=== PATIENT | female | born 1965 | race Two or more races ===

== ENCOUNTER 2024-03-31 17:46 | Observation (INO) | payer MEDICAID, SELFPAY ==
[2024-03-31 17:47] VITALS: BMI 29.2
[2024-03-31 18:21] VITALS: BP 147/56; PULSE 65; RESP 19; TEMP 37.1; O2SAT 97
[2024-03-31 18:22] VITALS: BMI 28.0
--- NOTE | 2024-03-31 18:23 | EKG_ITS ---
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
--- NOTE | 2024-03-31 18:49 | XR_ITS ---
Examination: PA chest single view Technique: Upright PA chest single view Exam date and time: March 31, 2024 1921 hrs. Indications: Chest pain today. Findings: Normal heart size Lungs are clear. The osseous structures are intact Impression: No active disease
--- NOTE | 2024-03-31 18:49 | PD.EDRME ---
Rapid Medical Screening Exam [facility] Arrival date/time: 03/31/24 17:46 59F with history of HTN, DM, and anxiety presents to ED with 2 days of CP and SOB (CP>SOB). Patient denies URI symptoms and emotional/triggering event. Chief Complaint: Chest Pain Vital signs: Vital Signs Temperature 98.8 F 03/31/24 18:21 Pulse Rate 65 03/31/24 18:21 Respiratory Rate 19 03/31/24 18:21 Blood Pressure 147/56 H 03/31/24 18:21 Pulse Oximetry (%) 97 03/31/24 18:21 Oxygen Delivery Method Room Air 03/31/24 18:21
[2024-03-31 19:47] LABS: Basophils # (Auto) 0.1 Thou/mm3 (0.0-0.2); Basophils % (Auto) 1 % (0-2.5); Eosinophils # (Auto) 0.1 Thou/mm3 (0.0-0.5); Eosinophils % (Auto) 1 % (0-10); Hematocrit 39.1 % (36.0-46.0); Hemoglobin 12.8 g/dL (12.0-16.0); Immature Granulocytes % (Auto) 0 % (0-0); Immature Granulocytes Auto 0.02 Thou/mm3 (0.00-0.00); Lymphocytes # (Auto) 2.7 Thou/mm3 (1.0-4.8); Lymphocytes % (Auto) 35 % (10-50); Mean Corpuscular HGB Conc 32.7 g/dl (31.0-37.0); Mean Corpuscular Hemoglobin 26.7 pg (25.0-35.0); Mean Corpuscular Volume 82 fL (80-100); Monocytes # (Auto) 0.5 Thou/mm3 (0.0-0.8); Monocytes % (Auto) 7 % (0-12); Neutrophils # (Auto) 4.3 Thou/mm3 (1.8-7.7); Neutrophils % (Auto) 56 % (37-80); Nucleated Red Blood Cell % 0 /100 WBC (0); Platelet Count 288 Thou/mm3 (140-440); RDW Standard Deviation 40.5 fL (36.4-46.3); White Blood Count 7.8 Thou/mm3 (3.6-11.0)
[2024-03-31 19:52] LABS: B-Type Natriuretic Peptide < 20 pg/mL (0-100)
[2024-03-31 19:53] LABS: Anion Gap 8 (7-16); Blood Urea Nitrogen 22 mg/dL (9-23); Carbon Dioxide 28.3 mMol/L (20.0-31.0); Chloride 103 mMol/L (98-107); Creatinine (Component) 1.2 mg/dL (0.6-1.3); Potassium 4.1 mMol/L (3.4-5.1); Sodium 139 mMol/L (136-145)
[2024-03-31 19:54] LABS: Alanine Aminotransferase 35 U/L (10-49); Albumin, Serum 4.8 gm/dL (3.4-4.8); Albumin/Globulin Ratio 1.5 (1.2-2.2); Alkaline Phosphatase 101 U/L (46-116); Aspartate Amino Transferase 23 U/L (0-34); BUN/Creatinine Ratio 18 Ratio (12-20); Bilirubin,Total 0.3 mg/dL (0.3-1.2); Calcium 10.1 mg/dL (8.3-10.6); Calcium (Corrected) 10.1 mg/dL (8.5-10.1); Estimated Creatinine Clearance 45.5 mL/min (>60); Globulin 3.1 gm/dL (2.3-3.5); Glucose 138 mg/dL (74-106); Osmolality,Calculated 282 (275-295); Total Protein 7.9 gm/dL (5.7-8.2); Troponin I 0.032 ng/mL (0.0-0.045); eGFR 52 See Note
[2024-03-31 20:24] VITALS: BP 162/94; PULSE 65; RESP 18; O2SAT 100
--- NOTE | 2024-03-31 20:28 | EDNOTE_ITS ---
ED Chest Pain RME/HPI General Chief Complaint: Chest Pain Stated Complaint: CHEST PAIN SINCE LAST NIGHT Arrival date/time: 03/31/24 17:46 RME / HPI RME / HPI narrative: 03/31/24 17:46 59F with history of HTN, DM, and anxiety presents to ED with 2 days of CP and SOB (CP>SOB). Patient denies URI symptoms and emotional/triggering event. ------ Dr. Virgen?s Main ED Evaluation: 59yo female with pmhx HTN, HLD, DM accompanied by her daughter presents to the ED for a chief complaint of left-sided chest pain x yesterday. Patient states she started having chest pain at 2039 last night. She currently rates her pain a 7 out of 10 in severity. She reports associated shortness of breath and her hands are sweating. She denies any headache, bloody nose, N/V or any other associated symptoms. She states she took her HTN medication this morning. 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 She denies any tobacco or illicit drug use. No known allergies. Related Data Home Medications ?Medication ?Instructions ?Recorded ?Confirmed lisinopril 40 mg tablet 20 ml PO QDAY #0 tabs 08/14/16 03/31/24 insulin glargine 100 unit/mL (3 36 unit subcut QPM 12/05/20 03/31/24 mL) subcutaneous pen (Basaglar KwikPen U-100 Insulin) metformin 1,000 mg tablet,extended 500 mg PO BID 12/05/20 03/31/24 release 24hr (osmotic) dapagliflozin propanediol 5 mg 5 mg PO QDAY 03/31/24 03/31/24 tablet (Farxiga) Allergies Allergy/AdvReac Type Severity Reaction Status Date / Time acetaminophen [From Tylenol] Allergy Verified 03/31/24 20:54 Review of Systems Review of Systems Systems Reviewed: All systems reviewed, normal except as documented Narrative Review of Systems: Gen: No fever, no chills, no weight loss, + sweating EYES: No discharge, no visual changes, no pain HEENT: No ear pain, no congestion, no sore throat PULM: + shortness of breath, no cough, no congestion CV: + chest pain, no dyspnea on exertion, no palpitations GI: No nausea, no vomiting, no diarrhea, no pain, no constipation : No frequency, no urgency, no dysuria Musc/skel: No joint pain, no back pain Skin: No rash. Warm and dry. Psyc: No hallucinations, no depression Heme/Lymph: No easy bleeding or bruising tendencies Neuro: No weakness, no headache Past Medical History Past Medical History NEUROLOGIC: Negative Neurological Disorders or Seizures CARDIAC: Positive Cardiac Disorders, Hypercholesterolemia and Hypertension; Negative Congestive Heart Failure RESPIRATORY: Negative Chronic Obstructive Pulmonary Disease (COPD) GASTROINTESTINAL: Positive Gastrointestinal Disorders and Hemorrhoids; Negative Hepatitis GENITOURINARY: Negative Genitourinary Disorders or Renal Disease REPRODUCTIVE: Positive Previous Pregnancies MUSCULOSKELETAL: Positive Musculoskeletal Disorders and Arthritis ENDOCRINE: Positive Endocrine Disorders and Diabetes Mellitus Type 2; Negative Diabetes Mellitus Type 1 HEMATOLOGIC: Negative Blood Disorders OTHER HISTORY: Positive Shingles, Falls, Blood Transfusions and Chicken Pox; Negative Hospitalization, Blood Transfusion Reaction, Anesthesia Reactions, Chemotherapy, Radiation Therapy, MRSA or Cancer Surgical History SURGICAL: Positive Section; Negative Cardiac Surgery, Endocrine Surgery or Abdominal Surgery Social History SMOKING STATUS: Never smoker ED Exam Narrative Physical exam: GENERAL APPEARANCE: alert and oriented x 4, well-developed, well-nourished, no acute distress VITALS: All vitals were reviewed and the pulse ox is 100% on room air, which is normal according to my interpretation. HEENT: Normocephalic, atraumatic; pupils equal, round, reactive to light; EOMI; mucous membranes pink, moist; oropharynx clear NECK: Supple LUNGS: CTABL; no wheezes, no rales, no rhonchi HEART: Regular rate, regular rhythm; normal S1, S2; no murmurs ABDOMEN: non distended; normal BS; soft, no tenderness, no guarding, no rebound; no masses, no organomegaly, no hernia BACK: no CVA tenderness EXTREMITIES: atraumatic; no edema NEUROLOGIC: awake; alert and oriented x4; cranial nerves II-XII grossly intact; no focal sensory or motor deficits PSYCHIATRIC: appropriate mood and affect SKIN: warm, dry, normal color; no rashes Course Course Course Narrative: CXR is ordered for determining the etiology of chest pain. Quality Measures none Orders Category Date Time Status COVID-19 Screening Questionnaire NOW Care 03/31/24 21:01 Active Home Lending Officer Q4H START 00 Care 03/31/24 20:30 Active Continuous Pulse Oximetry ONCE Care 03/31/24 20:30 Active Decision to Admit X1 Care 03/31/24 21:00 Completed EKG (ED ONLY) *Do not use* NOW Care 03/31/24 18:23 Completed Insert IV STAT Care 03/31/24 20:30 Active EKG (ED Only) Stat Exams 03/31/24 18:23 Ordered XR chest 1V portable Stat Exams 03/31/24 18:49 Completed BNP [B-Type Natriuretic Peptide] Stat Lab 03/31/24 19:09 Completed CBC Stat Lab 03/31/24 19:09 Completed Comprehensive Metabolic Panel Stat Lab 03/31/24 19:09 Completed Lipase Stat Lab 03/31/24 19:09 Completed Magnesium Stat Lab 03/31/24 19:09 Completed Troponin I Stat Lab 03/31/24 19:09 Completed Aspirin Med 03/31/24 20:29 Discontinued 325 mg PO X1 ONE Nitroglycerin Oint 2% [Nitro-paste Oint 2%] Med 03/31/24 20:29 Discontinued 1 inch TOP X1 ONE Vital Signs Vital signs: Vital Signs Temperature 98.8 F 03/31/24 18:21 Pulse Rate 65 03/31/24 18:21 Respiratory Rate 19 03/31/24 18:21 Blood Pressure 147/56 H 03/31/24 18:21 Pulse Oximetry (%) 97 03/31/24 18:21 Oxygen Delivery Method Room Air 03/31/24 18:21 Chest Pain MDM Narrative MDM Narrative:: Scribe Attestation: 03/31/24 Rufina Najera am scribing for and in the presence of Dr. Virgen. HEART score is 4, which makes the patient at moderate risk for a cardiac event. Patient data External records reviewed:: [facility] previous records (Per chart review, patient has no previous ED visits to this facility.) Clinical information provided by:: patient Social determinants that could affect healthcare access:: none Patient has the following chronic illnesses:: HTN, HLD, DM How is presenting disease/condition affected by chronic disease/condition?: caused by Evaluation data The following diagnostics were reviewed and interpreted by me:: lab results, radiology exam(s) and EKG tracing(s) Lab and/or radiology exams considered but not ordered:: none Interpretation Summary: CBC is normal, CMP is normal, troponin is normal, according to my interpretation. EKG done at 1837, NSR, rate of 63, normal axis, no ectopy, Q wave in lead III and aVF, no acute ischemia, according to my interpretation. ---- [facility] Report Signed Patient: FERCHO LIMON Record#: [id number] Birthdate: 1965 Age/Sex: 59 / F Location: [facility] Attending Dr: Ordering Physician: Jorje Saunders PA-C Date of Service: 03/31/24 Procedure(s): XR chest 1V portable Accession Number(s): [id number] cc: Dano Sharma MD; Jorje Saunders PA-C~ Examination: PA chest single view Technique: Upright PA chest single view Exam date and time: March 31, 2024 1921 hrs. Indications: Chest pain today. Findings: Normal heart size Lungs are clear. The osseous structures are intact Impression: No active disease Dictated By: Dano Sharma MD Signed By: <Electronically signed by Dano Sharma MD in OV> 03/31/241925 Medications / Prescriptions Medications or Prescriptions considered but not ordered:: none Medication administrations:: Medication Administration History Dextrose (Dextrose 50%-Water Inj 50 Ml Syringe) 25 ml IV Q15MIN PRN PRN Reason: BG 50-70 responsive npo pt Stop: 05/01/24 01:47 Dextrose (Dextrose 50%-Water Inj 50 Ml Syringe) 50 ml IV Q15MIN PRN PRN Reason: BG <50 OR BG <70 & pt unresponsive Stop: 05/01/24 01:47 Enoxaparin Sodium (Enoxaparin Sod Inj 80 Mg/0.8 Ml Syringe) 70 mg SC BID YARELY Stop: 04/15/24 08:59 Glucagon (Glucagon Inj 1 Mg Vial) 1 mg IM Q15MIN PRN PRN Reason: BG <70, and no IV access Influenza Virus Vaccine Quadrival (Influenza Virus Quadrivalent 0.5 Ml Syringe) 0.5 ml IMi .ONCE ONE Stop: 04/01/24 08:01 Insulin Glargine (Insulin Glargine (Lantus) 5 Unit/0.05 Ml (Per 5 Units)) 10 unit SC HS YARELY Stop: 05/01/24 20:59 Insulin Human Lispro (Insulin Lispro (Admelog) 1 Unit/0.01 Ml Unit) 0 unit SC AC [facility]; Protocol Stop: 05/01/24 07:29 Lisinopril (Lisinopril 20 Mg Tablet) 20 mg PO QDAY [facility] Stop: 05/01/24 08:59 Ondansetron HCl (Ondansetron Inj 2 Mg/Ml Inj 2 Ml) 4 mg IV Q6H PRN; Protocol PRN Reason: NAUSEA OR VOMITING Stop: 04/30/24 22:07 Discontinued Medications Aspirin (Aspirin 325 Mg Tablet) 325 mg PO X1 ONE Stop: 03/31/24 20:30 Last Admin: 03/31/24 20:40 Dose: 325 mg Documented By: RUDY Heparin Sodium (Porcine) (Heparin Sod Inj 5000 Unit/Ml Vial) 5,000 unit SC Q12HR [facility] Stop: 04/15/24 08:59 Nitroglycerin (Nitroglycerin Oint 2% 1 Inch Packet) 1 inch TOP X1 ONE Stop: 03/31/24 20:30 Last Admin: 03/31/24 20:40 Dose: 1 inch Documented By: RUDY see above Consultations Consultation(s) initiated? (list below): Yes Consultation #1 (Physician, Specialty, Details): Discussed case with [the resident physician, attending Dr. Barger] from Hospitalist service regarding consultation. Discussed patients ED course, exam findings, labs, and radiology results. The Hospitalist states we don't perform stress tests here. Time: 20:49 Consultation #2 (Physician, Specialty, Details): Discussed case with [Dr. Liang] from [cardiology] regarding [consultation]. Discussed patients ED course, exam findings, labs, and radiology results. States to admit the patient. Agrees to consult. Time: 20:53 Consultation #3 (Physician, Specialty, Details): Discussed case with [the resident physician, attending Dr. Barger] from Hospitalist service regarding admission. Discussed patients ED course, exam findings, labs, and radiology results. The Hospitalist [agrees] to accept the patient for admission. Time: 20:58 Diagnosis Chest Pain Differential Diagnosis: st elevation myocardial infarction, costochondritis, chest pain and other (NSTEMI, ACS) Most likely diagnosis given after review of the tests above:: see below Admission Indicated Admission indicated?: indicated Admission Request Was there a request for admission?: Yes Admission Attestation Admission request attestation: Discussed case with [] from Hospitalist service regarding admission. Discussed patients ED course, exam findings, labs, and radiology results. The Hospitalist [agrees,declines] to accept the patient for admission. Disposition Plan Disposition Plan: Admit Critical Care Time Critical Care Time Critical Care Time: Yes Total Critical Care Time (min.): 35 Attestation: The high probability of sudden, clinically significant deterioration in the patient?s condition required the highest level of my preparedness to intervene urgently. The services I provided to this patient were to treat and/or prevent clinically significant deterioration. Services included the following: chart data review, reviewing nursing notes and/or old charts, documentation time, it architecture consultant collaboration regarding findings and treatment options, medication orders and management, direct patient care, vital sign assessments and ordering, interpreting and reviewing diagnostic studies and lab tests. Aggregate critical care time includes only time during which I was engaged in work directly related to the patient?s care, as described above, whether at bedside or elsewhere in the Emergency Department. It did not include time spent performing other reported procedures or the services of residents, students, nurses or physician assistants. Discharge Plan Plan Patient Disposition: Admit Acute Care w/in Hospital Problem List Clinical Impression: Non-ST elevation NM (NSTEMI)
[2024-03-31 20:40] VITALS: BP 142/76; PULSE 62
[2024-03-31] MEDS: NITROGLYCERIN OINT 2% 1 INCH PACKET TOP (20:40)
[2024-03-31] MEDS: Aspirin 325 MG TABLET PO (20:40)
[2024-03-31 20:46] VITALS: PULSE 60
[2024-03-31 21:59] LABS: Lipase 51 U/L (12-53); Magnesium 1.9 mg/dL (1.6-2.6)
[2024-03-31 22:43] VITALS: BP 146/81; PULSE 64; RESP 17; TEMP 36.9; O2SAT 97
[2024-03-31 23:22] VITALS: BMI 27.8
--- NOTE | 2024-03-31 23:55 | PC.NURSE ---
Pt came in from ED, pt is alert and oriented, no C/O of pain at this time. Pt is ambulatory stedy on her feet.
[2024-04-01] VITALS (10 sets, daily range): BP systolic 111–156; BP diastolic 58–83; PULSE 57–71; RESP 16–97; TEMP 36.4–36.8; O2SAT 95–97
--- NOTE | 2024-04-01 00:12 | PD.RESHP ---
Documentation for date of: 04/01/24 [facility] History of Present Illness History of present illness: The patient is a 59-year-old female with a past medical history of hypertension and diabetes presenting to the ED on 03/31/2024 with chest pain. She was in her usual state of health until about 8:40 PM last night when she started to have left-sided chest pain, rated about 7/10 in severity, nonradiating. She mentions that it started Initially on exertion as she worked, lasted about 30 minutes and she was relieved but it basically had been intermittent since onset. She denies palpitations or shortness of breath in association with the symptoms. Pain does not change in inspiration and patient reports that as she massaged her chest it seemed to get better. She has not had a similar episode in the past. She neither smokes nor drinks alcohol use any illicit drugs. ED course: In the ED, patient was afebrile, initial blood pressure was elevated at 147 and she was nontachycardic, saturating 97% on room air. CBC was unremarkable as well as CMP, glucose slightly elevated at 138. EKG was done and was unremarkable and chest x-ray had no active disease. Troponins are negative. The patient received aspirin and nitroglycerin in the ED and states that she felt like it made her feel better. Copy Coordinator Dr. Liang was consulted and recommended to admit the patient for observation and if chest pain worsens possible left heart cath. PMHx-hypertension, diabetes PSHx-Nil Home meds-Farxiga, lisinopril, insulin 35 units twice daily, metformin Review of Systems Review of Systems Narrative Review of Systems: GENERAL: Denies fevers/chills or diaphoresis. HEENT: Denies headache or visual/hearing changes. Denies nasal discharge. NEURO: Denies unusual weakness or difficulty speaking. CARDIO: Admits chest pain, denies palpitations PULM: Denies SOB, coughing, or wheezing. GI: Denies abdominal pain, N/V/C/D/reflux/gas, bright red blood per rectum or melena. Reports having BMs. URO: Denies burning/itching/pain/urinary changes. MSK/EXT/SKIN: Denies joint/skeletal/muscle pain, issues/changes in upper or lower extremities, itchiness, or superficial pain. PSYCH: Cooperative, pleasant mood & affect. 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 Eyes open, symmetrical, & clear CARDIO: No chest pain on palpation. Heart RRR, no obvious murmurs PULM: No noted coughing/dyspnea. Lungs CTA B/L GI: Abdomen soft, nondistended, no pain on palpation. BSx4 URO/METAL SORTER:: No further abnormalities noted. SKIN/MSK/EXT: No wounds/rashes/edema/amputations, no pain on palpation. Pedal pulses present B/L Results: Labs 04/01/24 04:59 04/01/24 04:59 Labs: Short CBC 03/31/24 Range/Units 19:09 WBC 7.8 (3.6-11.0) Thou/mm3 Hgb 12.8 (12.0-16.0) g/dL Hct 39.1 (36.0-46.0) % Plt Count 288 (140-440) Thou/mm3 BMP 03/31/24 19:09 Sodium 139 Potassium 4.1 Chloride 103 Carbon Dioxide 28.3 BUN 22 Creatinine 1.2 Glucose 138 H Calcium 10.1 Cardiac Enzymes 03/31/24 Range/Units 19:09 Troponin I 0.032 (0.0-0.045) ng/mL Liver Function 03/31/24 Range/Units 19:09 Total Bilirubin 0.3 (0.3-1.2) mg/dL AST 23 (0-34) U/L ALT 35 (10-49) U/L Alkaline Phosphatase 101 (46-116) U/L Albumin 4.8 (3.4-4.8) gm/dL Quality Measures Quality Measures none Medications Home Medications and Allergies Home Medications ?Medication ?Instructions ?Recorded ?Confirmed ?Type lisinopril 40 mg tablet 20 ml PO QDAY #0 tabs 08/14/16 03/31/24 History insulin glargine 100 unit/mL (3 36 unit subcut QPM 12/05/20 03/31/24 History mL) subcutaneous pen (Basaglar KwikPen U-100 Insulin) metformin 1,000 mg tablet,extended 500 mg PO BID 12/05/20 03/31/24 History release 24hr (osmotic) dapagliflozin propanediol 5 mg 5 mg PO QDAY 03/31/24 03/31/24 History tablet (Farxiga) Allergies Allergy/AdvReac Type Severity Reaction Status Date / Time acetaminophen [From Tylenol] Allergy Verified 03/31/24 20:54 Visit Medications Heparin Sodium (Porcine) (Heparin Sod Inj 5000 Unit/Ml Vial) 5,000 unit SC Q12HR YARELY Stop: 04/15/24 08:59 Influenza Virus Vaccine Quadrival (Influenza Virus Quadrivalent 0.5 Ml Syringe) 0.5 ml IMi .ONCE ONE Stop: 04/01/24 08:01 Ondansetron HCl (Ondansetron Inj 2 Mg/Ml Inj 2 Ml) 4 mg IV Q6H PRN; Protocol PRN Reason: NAUSEA OR VOMITING Stop: 04/30/24 22:07 Discontinued Medications Aspirin (Aspirin 325 Mg Tablet) 325 mg PO X1 ONE Stop: 03/31/24 20:30 Last Admin: 03/31/24 20:40 Dose: 325 mg Nitroglycerin (Nitroglycerin Oint 2% 1 Inch Packet) 1 inch TOP X1 ONE Stop: 03/31/24 20:30 Last Admin: 03/31/24 20:40 Dose: 1 inch Assessment & Plan Assessment Summary: The patient is a 59-year-old female with a past medical history of hypertension and diabetes presenting to the ED on 03/31/2024 with chest pain. Copy Coordinator Dr. Liang was consulted and recommended to admit the patient observation and if chest pain worsens possible left heart cath. #Atypical chest pain #Rule out unstable angina The patient presented with a 24hr history of chest pain, rated about 7 out of 10 in severity, nonradiating, initially felt on exertion, intermittent. She denied palpitation or shortness of breath in association. In the ED, patient was afebrile, initial blood pressure was elevated at 157, no tachycardia. Troponins were negative and EKG was unremarkable. Copy Coordinator Dr. Liang was consulted and recommended starting the patient admitted the patient and chest pain worsens or progresses for the next 24 hours, likely left heart cath. Plan: -Admit to medtele obs -Pain management -Monitor troponins and EKG -Aspirin 81mg daily #History of hypertension The patient has a history of hypertension and is on lisinopril 20mg daily. BP on admission- 147/56. Plan: -Resume home meds #History of diabetes The patient has a history of diabetes and is on farxiga 5mg, metformin 500mg BID and insulin lantus 36units at night. No A1c on file Plan: -A1c -ISS -Blood glucose check AC Health maintenance: Dispo:MedTele obs Diet: Cardiac DVT: SC Lovenox Duran: None Lines: Peripheral PT: Not ordered Code: Full Case was discussed with attending physician, Dr Charbel Meng MD PGY-1 Attending Provider Attestation/Addendum I, Nishant Barger MD attest that I was physically present for the berumen portions of the service and evaluated the patient with the resident and I reviewed and discussed the case with the resident and agree with the resident's findings and plans of care as documented above 59-year-old female with past medical history of hypertension, hyperlipidemia, DM presents to ED with chief complaint of nonradiating left-sided chest pain that began last night. Chest pain has been waxing and waning and is exacerbated by movement and improved with rest. Initial workup in the ED showed negative troponin with initial EKG showing possible Q waves in inferior leads. cardiology was consulted by ED who recommended admission for serial monitoring and possible further cardiac workup given risk factors and HEART score of 4. Will initiate patient on therapeutic lovenox and continue serial monitoring for now, formal cardiology consult pending in the am. Nishant Barger MD
--- NOTE | 2024-04-01 00:52 | EKG_ITS ---
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
[2024-04-01 02:20] LABS: Glucose Estimated Average 197 mg/dL (80-131); Hemoglobin A1C 8.5 % Hgb (4.8-6.0); Troponin I 0.029 ng/mL (0.0-0.045)
--- NOTE | 2024-04-01 04:46 | PC.NURSE ---
Pt is asleep, no C/O of chest pain at this time.
[2024-04-01 05:46] LABS: Basophils # (Auto) 0.1 Thou/mm3 (0.0-0.2); Basophils % (Auto) 1 % (0-2.5); Eosinophils # (Auto) 0.1 Thou/mm3 (0.0-0.5); Eosinophils % (Auto) 2 % (0-10); Hematocrit 35.2 % (36.0-46.0); Hemoglobin 11.4 g/dL (12.0-16.0); Immature Granulocytes % (Auto) 0 % (0-0); Immature Granulocytes Auto 0.01 Thou/mm3 (0.00-0.00); Lymphocytes # (Auto) 3.1 Thou/mm3 (1.0-4.8); Lymphocytes % (Auto) 44 % (10-50); Mean Corpuscular HGB Conc 32.4 g/dl (31.0-37.0); Mean Corpuscular Hemoglobin 26.3 pg (25.0-35.0); Mean Corpuscular Volume 81 fL (80-100); Monocytes # (Auto) 0.5 Thou/mm3 (0.0-0.8); Monocytes % (Auto) 7 % (0-12); Neutrophils # (Auto) 3.2 Thou/mm3 (1.8-7.7); Neutrophils % (Auto) 46 % (37-80); Nucleated Red Blood Cell % 0 /100 WBC (0); Platelet Count 167 Thou/mm3 (140-440); RDW Standard Deviation 40.8 fL (36.4-46.3); Red Blood Count 4.34 Miln/mm3 (4.00-5.20)
[2024-04-01 06:15] LABS: Alanine Aminotransferase 25 U/L (10-49); Albumin, Serum 4.1 gm/dL (3.4-4.8); Albumin/Globulin Ratio 1.5 (1.2-2.2); Alkaline Phosphatase 85 U/L (46-116); Anion Gap 6 (7-16); Aspartate Amino Transferase 21 U/L (0-34); BUN/Creatinine Ratio 18 Ratio (12-20); Bilirubin,Total 0.3 mg/dL (0.3-1.2); Blood Urea Nitrogen 18 mg/dL (9-23); Calcium 9.5 mg/dL (8.3-10.6); Calcium (Corrected) 9.5 mg/dL (8.5-10.1); Carbon Dioxide 27.2 mMol/L (20.0-31.0); Cardiac Risk Estimate 5.7 RATIO (3.7-5.6); Chloride 106 mMol/L (98-107); Cholesterol 215 mg/dL (132-200); Estimated Creatinine Clearance 54.5 mL/min (>60); Globulin 2.7 gm/dL (2.3-3.5); Glucose 92 mg/dL (74-106); HDL Cholesterol 38 mg/dL (40-60); LDL Cholesterol,Calculated 151 mg/dL (0-130); Magnesium 1.8 mg/dL (1.6-2.6); Osmolality,Calculated 279 (275-295); Phosphorous 4.5 mg/dL (2.4-5.1); Potassium 3.7 mMol/L (3.4-5.1); Sodium 139 mMol/L (136-145); Thyroid Stimulating Hormone 5.74 uIU/mL (0.55-4.78); Total Protein 6.8 gm/dL (5.7-8.2); Triglycerides 129 mg/dL (30-150); eGFR > 60 See Note
[2024-04-01 07:49] LABS: Partial Thromboplastin Time 25.3 Seconds (22.0-36.0); Prothrombin Time 10.7 Seconds (9.0-12.2)
[2024-04-01 08:47] LABS: Free T4 (Free Thyroxine) 1.35 ng/dL (0.89-1.76)
[2024-04-01] MEDS: Lisinopril 20 MG TABLET PO (09:22)
[2024-04-01] MEDS: HEPARIN SOD INJ 5000 UNIT/ML VIAL 4000 UNIT IV (09:24)
--- NOTE | 2024-04-01 09:24 | PC.SS ---
Patient Suzi Hidalgo is a 59 year old female admitted for Chest Pain. SS met with patient at bedside to discuss discharge plan. Patient reports she lives at home with her daughter and . Patient reports that prior to admission she was able to ambulate and did not utilize any source of DME to assist with ambulation. Patient is able to complete all ADL's independently. Patient's PCP is Joana Jules. Patient's Medical decision maker is her daughter, Darya Lara [phone]. At time of discharge patient will return home. Family will provide transportation. Next of Kin: Darya Marco [phone] Discharge plan: Home
[2024-04-01] MEDS: Heparin/D5w 25K 250 ML Ivpb 25,000 UNIT/250 ML BAG 8.284 UNIT IV (09:32)
--- NOTE | 2024-04-01 09:35 | PD.RESPRO ---
Documentation for date of: 04/01/24 Exam Vital Signs Temp Pulse Resp BP Pulse Ox O2 Del Method 98.1 F 68 18 122/61 96 Room Air 04/01/24 07:46 04/01/24 09:09 04/01/24 09:09 04/01/24 07:46 04/01/24 07:46 04/01/24 07:46 Objective Labs 04/01/24 04:59 04/01/24 04:59 Labs: Laboratory Results - last 24 hr 03/31/24 04/01/24 04/01/24 19:09 01:36 04:59 WBC 7.8 7.0 RBC 4.80 4.34 Hgb 12.8 11.4 L Hct 39.1 35.2 L MCV 82 81 MCH 26.7 26.3 MCHC 32.7 32.4 RDW Std Deviation 40.5 40.8 Plt Count 288 167 D Neut % (Auto) 56 46 Lymph % (Auto) 35 44 [place] % (Auto) 7 7 Eos % (Auto) 1 2 Baso % (Auto) 1 1 Neut # (Auto) 4.3 3.2 Lymph # (Auto) 2.7 3.1 [place] # (Auto) 0.5 0.5 Eos # (Auto) 0.1 0.1 Baso # (Auto) 0.1 0.1 Immature Gran # (Auto) 0.02 H 0.01 H Absolute Nucleated RBC 0.00 0.00 Immature Gran % 0 0 Nucleated RBC % 0 0 PT 10.7 INR 1.0 APTT 25.3 Sodium 139 139 Potassium 4.1 3.7 Chloride 103 106 Carbon Dioxide 28.3 27.2 Anion Gap 8 6 L BUN 22 18 Creatinine 1.2 1.0 Estim Creat Clear Calc 45.5 L 54.5 L eGFR 52 L > 60 BUN/Creatinine Ratio 18 18 Glucose [address] Glu mg/dL 197 H Hemoglobin A1c 8.5 H Calculated Osmolality 282 279 Calcium 10.1 9.5 Corrected Calcium 10.1 9.5 Phosphorus 4.5 Magnesium 1.9 1.8 Total Bilirubin 0.3 0.3 AST 23 21 ALT 35 25 Alkaline Phosphatase 101 85 Troponin I 0.032 0.029 B-Natriuretic Peptide < 20 Total Protein 7.9 6.8 Albumin 4.8 4.1 D Globulin 3.1 2.7 Albumin/Globulin Ratio 1.5 1.5 Triglycerides 129 Cholesterol 215 H LDL Cholesterol, Calc 151 H HDL Cholesterol 38 L Cholesterol/HDL Ratio 5.7 H Lipase 51 TSH 5.74 H Free T4 1.35 Quality Measures Quality Measures none Assessment & Plan Assessment Current Active Medications: Generic Name Dose Route Start Last Admin Trade Name Freq PRN Reason Stop Dose Admin Atorvastatin Calcium 40 mg 04/01/24 21:00 Atorvastatin Calcium 20 Mg Tablet PO 05/01/24 20:59 HS YARELY Dextrose 25 ml 04/01/24 01:48 Dextrose 50%-Water Inj 50 Ml Syringe IV 05/01/24 01:47 Q15MIN PRN BG 50-70 responsive npo pt Dextrose 50 ml 04/01/24 01:48 Dextrose 50%-Water Inj 50 Ml Syringe IV 05/01/24 01:47 Q15MIN PRN BG <50 OR BG <70 & pt unresponsive Glucagon 1 mg 04/01/24 01:48 Glucagon Inj 1 Mg Vial IM Q15MIN PRN BG <70, and no IV access Heparin Sodium/Dextrose 25,000 unit in 250 mls @ 8.284 mls/hr 04/01/24 08:00 Heparin In D5w Ivpb IV 04/15/24 07:59 .Q24H [facility] Protocol 12 UNITS/KG/HR Insulin Glargine 10 unit 04/01/24 21:00 Insulin Glargine (Lantus) 5 Unit/0.05 Ml (Per 5 Units) AL 05/01/24 20:59 HS [facility] Insulin Human Lispro 0 unit 04/01/24 07:30 04/01/24 07:29 Insulin Lispro (Admelog) 1 Unit/0.01 Ml Unit SC 05/01/24 07:29 Not Given AC [facility] Protocol Lisinopril 20 mg 04/01/24 09:00 Lisinopril 20 Mg Tablet PO 05/01/24 08:59 QDAY [facility] Ondansetron HCl 4 mg 03/31/24 22:08 Ondansetron Inj 2 Mg/Ml Inj 2 Ml IV 04/30/24 22:07 Q6H PRN NAUSEA OR VOMITING Protocol
--- NOTE | 2024-04-01 11:54 | PC.NURSE ---
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
--- NOTE | 2024-04-01 12:14 | ESCONSULT_ITS ---
<Statement entered by Francisco Javier Liang MD - 04/02/24 15:43> I personally evaluated the patient emergency room and patient appears to be clinically stable not have any chest pain shortness of breath her symptoms appear to be noncardiac in nature pericardial in nature no enzyme elevation patient given discharged home and has an outpatient workup for cardiology. I evaluated the patient along with resident physician PGY 2 Dr. De Leon agree with the treatment plan recommendation also discussed the admitting team. HPI Data of Consult Requesting Physician: Nishant Barger MD Admitting Provider: Nishant Barger MD Attending Provider: Nishant Barger MD Primary Care Provider: DEAN Hinojosa Consult Narrative History of present illness: 59-year-old female patient with significant medical history for hypertension and diabetes melitis type II presented to ED with complaints of chest pain. Symptoms started on the night of ED visit, located left side of the chest, 7 out of 10 in severity and nonradiating. Chest pain described as pressure-like in nature, exacerbated with laying on her left side and alleviated with sitting up. Patient denies having similar symptoms in the past, denied shortness of breath, dizziness, nausea, vomiting or other associated symptoms. Patient stated that [place] chest also alleviated the pain. In ED vitals were unremarkable, troponins were negative, EKG indicated sinus rhythm and CBC/CMP were within normal limits. In ED patient was administered aspirin, nitroglycerin and started on heparin drip. Cardiology was consulted for further management. Medical Hx: HTN, DM2 Medications (need reconciliation): Atorvastatin 40 mg, Farxiga 5 mg, lisinopril 20 mg, metformin 500 mg, insulin glargine 36 units Surgical Hx: None Social Hx: Denies drinking alcohol, smoking cigarettes or using other illicit drugs Allergies: Acetaminophen = unknown CODE STATUS: Full code 04/01/24: Patient examined at bedside, imaging and labs reviewed. Patient's description of chest pain is pericardial in nature. Patient states symptoms exacerbated with position and alleviated with sitting up. Although patient has comorbidities that would increase her CAD risks, this admission was chest pain is not due to any arterial blockage. Heparin can be discontinued and patient is safe to be discharged home. Patient can follow-up with PCP and complete outpatient cardiac workup. cc:: cc: Nishant Barger MD Review of Systems Review of Systems Systems Reviewed: All systems reviewed, normal except as documented Exam Vital Signs Temp Pulse Resp BP Pulse Ox O2 Del Method 97.6 F 60 16 128/66 95 Room Air 04/01/24 12:00 04/01/24 12:00 04/01/24 12:00 04/01/24 12:00 04/01/24 12:00 04/01/24 12:00 Narrative Exam Constitutional: well-developed, well-nourished, in no acute distress, lying in bed HEENT: NCAT, EOMI, reactive round pupils b/l, patent nares b/l, moist mucous membranes Lung: CTAB, no wheezing, no rhonchi Heart: Regular S1S2, no murmurs, gallops, or rubs Abdomen: Soft, non-distended, non-tender, bowel sounds present throughout Extremities: No cyanosis, clubbing, or edema, LE pulses present b/l Neurologic: No focal sensory or motor deficits noted, AOx3, appropriate affect Skin: Warm, dry, no lesions or rashes noted Results Labs 04/01/24 04:59 04/01/24 04:59 Labs: Short CBC 03/31/24 04/01/24 Range/Units 19:09 04:59 WBC 7.8 7.0 (3.6-11.0) Thou/mm3 Hgb 12.8 11.4 L (12.0-16.0) g/dL Hct 39.1 35.2 L (36.0-46.0) % Plt Count 288 167 D (140-440) Thou/mm3 BMP 03/31/24 04/01/24 19:09 04:59 Sodium 139 139 Potassium 4.1 3.7 Chloride 103 106 Carbon Dioxide 28.3 27.2 BUN 22 18 Creatinine 1.2 1.0 Glucose 138 H 92 Calcium 10.1 9.5 Cardiac Enzymes 03/31/24 04/01/24 Range/Units 19:09 01:36 Troponin I 0.032 0.029 (0.0-0.045) ng/mL Liver Function 03/31/24 04/01/24 Range/Units 19:09 04:59 Total Bilirubin 0.3 0.3 (0.3-1.2) mg/dL AST 23 21 (0-34) U/L ALT 35 25 (10-49) U/L Alkaline Phosphatase 101 85 (46-116) U/L Albumin 4.8 4.1 D (3.4-4.8) gm/dL Quality Measures Quality Measures none Medications Home Medications and Allergies Home Medications ?Medication ?Instructions ?Recorded ?Confirmed ?Type insulin glargine 100 unit/mL (3 36 unit subcut QPM 12/05/20 03/31/24 History mL) subcutaneous pen (Basaglar KwikPen U-100 Insulin) metformin 1,000 mg tablet,extended 500 mg PO BID 12/05/20 03/31/24 History release 24hr (osmotic) dapagliflozin propanediol 5 mg 5 mg PO QDAY 03/31/24 03/31/24 History tablet (Farxiga) Allergies Allergy/AdvReac Type Severity Reaction Status Date / Time acetaminophen [From Tylenol] Allergy Verified 03/31/24 20:54 Visit Medications Aspirin (Aspirin Ec 81 Mg Tabec) 81 mg PO QDAY [facility] Stop: 05/02/24 08:59 Atorvastatin Calcium (Atorvastatin Calcium 20 Mg Tablet) [address] [facility] Stop: 05/01/24 20:59 Dextrose (Dextrose 50%-Water Inj 50 Ml Syringe) 25 ml IV Q15MIN PRN PRN Reason: BG 50-70 responsive npo pt Stop: 05/01/24 01:47 Dextrose (Dextrose 50%-Water Inj 50 Ml Syringe) 50 ml IV Q15MIN PRN PRN Reason: BG <50 OR BG <70 & pt unresponsive Stop: 05/01/24 01:47 Glucagon (Glucagon Inj 1 Mg Vial) 1 mg IM Q15MIN PRN PRN Reason: BG <70, and no IV access Heparin Sodium/Dextrose (Heparin In D5w Ivpb) 25,000 unit in 250 mls @ 8.284 mls/hr IV .Q24H [facility]; Protocol Stop: 04/15/24 07:59 Last Admin: 04/01/24 09:32 Dose: 12 units/kg/hr, 8.284 mls/hr Insulin Glargine (Insulin Glargine (Lantus) 5 Unit/0.05 Ml (Per 5 Units)) [address] [facility] Stop: 05/01/24 20:59 Insulin Human Lispro (Insulin Lispro (Admelog) 1 Unit/0.01 Ml Unit) 0 unit SC [facility]; Protocol Stop: 05/01/24 07:29 Last Admin: 04/01/24 12:01 Dose: Not Given Lisinopril (Lisinopril 20 Mg Tablet) 20 mg PO QDAY YARELY Stop: 05/01/24 08:59 Last Admin: 04/01/24 09:22 Dose: 20 mg Ondansetron HCl (Ondansetron Inj 2 Mg/Ml Inj 2 Ml) 4 mg IV Q6H PRN; Protocol PRN Reason: NAUSEA OR VOMITING Stop: 04/30/24 22:07 Discontinued Medications Aspirin (Aspirin 325 Mg Tablet) 325 mg PO X1 ONE Stop: 03/31/24 20:30 Last Admin: 03/31/24 20:40 Dose: 325 mg Enoxaparin Sodium (Enoxaparin Sod Inj 80 Mg/0.8 Ml Syringe) 70 mg SC BID YARELY Stop: 04/15/24 08:59 Heparin Sodium (Porcine) (Heparin Sod Inj 5000 Unit/Ml Vial) 5,000 unit SC Q12HR YARELY Stop: 04/15/24 08:59 Heparin Sodium (Porcine) (Heparin Sod Inj 5000 Unit/Ml Vial) 4,000 unit IV X1 ONE; Protocol Stop: 04/01/24 08:16 Last Admin: 04/01/24 09:24 Dose: 4,000 unit Influenza Virus Vaccine Quadrival (Influenza Virus Quadrivalent 0.5 Ml Syringe) 0.5 ml IMi .ONCE ONE Stop: 04/01/24 08:01 Nitroglycerin (Nitroglycerin Oint 2% 1 Inch Packet) 1 inch TOP X1 ONE Stop: 03/31/24 20:30 Last Admin: 03/31/24 20:40 Dose: 1 inch Assessment & Plan Plan 59-year-old female patient with significant medical history for hypertension and diabetes melitis type II presented to ED with complaints of chest pain. Cardiology was consulted regarding further management. #ACS rule out #Atypical chest pain On admission patient complaining of positional chest pain, exacerbated with laying on back or on left side Troponins negative and EKG sinus rhythm with no ST or T wave changes Plan: ? Pain seems to be pericardial in nature ? Heparin drip can be discontinued ? Patient is stable to be discharged home ? Patient can follow-up with PCP and further outpatient cardiac testing if needed #Hypertension #DM2 ?Management per primary team This patient care was discussed with my attending Dr. Garth Montes De Oca MD PGY-2 Disclaimer: Minor errors in prototype carpenter may be present since this note was dictated by speech recognition software.
--- NOTE | 2024-04-01 15:55 | ESDS_ITS ---
<Statement entered by Janis Hood DO - 04/01/24 17:41> I, Janis Hood DO, attest that I was physically present for the berumen portions of the service and evaluated the patient with the resident and I reviewed and discussed the case with the resident and agree with the resident's findings and plans of care as documented above <Statement entered by Narcisa Bucio MD - 04/01/24 16:22> I discussed with and supervised my co-resident involved in the care of this patient. I agree with the assessment and plan as documented above. Narcisa Bucio MD PGY-3 Planned Discharge Date 04/01/24 DS: Providers Provider Date of admission: 03/31/24 22:08 Primary care physician: DEAN Hinojosa Admitting Provider: Nishant Barger MD Attending Provider on Admission: Nishant Barger MD Consults: 03/31/24 22:14 Consult to Cardiology Routine Comment: Consulting Provider: Francisco Javier Liang Attending Provider on DC: Janis Hood DO Discharging Provider: Burak Eduardo MD DS: Diagnosis Problem List Completed Was Problem List Reviewed/Reconciled?: Yes Hospital Course Hospital Course Hospital course: The patient is a 59-year-old female with a past medical history of hypertension and diabetes presenting to the ED on 03/31/2024 with chest pain. Medical Radiation Dosimetrist Dr. Liang was consulted and recommended to admit the patient observation and if chest pain worsened possible left heart cath. Patient began having chest pain the night prior after mopping the floor. The pain was worse with exertion and resolved with rest. Pt described the pain has left sided chest pain and pressure like, worse with movement. Patient admitted and started on heparin drip due to concern for NSTEMI. Patient reported resolution of pain during hospitalization with troponins detectable, but negative x 2. EKG did not show any ST or T wave changes. Patient was evaluated by cardiology, recommended patient to be discharged and remaining workup to be done in outpatient setting as chest pain appeared atypical. Patient is stable for discharge home and to f/u with PCP within 1 week of discharge. Discharge diagnoses: 1. Atypical chest pain?resolved 2. ACS ruled out 3. Essential hypertension 4. Insulin-dependent diabetes mellitus type 2 [8.5] Discharge plan: ? We have started you on a cholesterol medication atorvastatin. Please take 1 tablet at nighttime. ? We have decreased your dose of blood pressure medication lisinopril. Please take 1 tablet once a day. ? Continue taking the rest of your home medications as before. ? Please follow-up with your primary care doctor within 1 week of discharge. ? Please follow-up with cardiology clinic within 1-2 weeks of discharge for further investigation of your chest pain. ? If you experience any new, worsening or persistent symptoms either call your primary doctor, dial 911 or present to the emergency department. We are grateful to be able to participate in Ms. Gruber's care. We wish her the best. Plan of care discussed with Attending Dr. Hood and PGY3 Dr. Fortunato Eduardo MD PGY 1 Time Spent with Patient Time attestation: Total time spent providing and/or coordinating discharge services: Time spent: Greater than 30 minutes (37) Exam Vital Signs Temp Pulse Resp BP Pulse Ox O2 Del Method 97.9 F 68 16 131/80 H 97 Room Air 04/01/24 15:43 04/01/24 15:43 04/01/24 15:43 04/01/24 15:43 04/01/24 15:43 04/01/24 15:43 Narrative Exam GENERAL: AAOX3 NEURO: DEALER SALES REP grossly intact, moves extremities x4 HEENT: Moist mucosa. Eyes open, symmetrical, & clear CARDIO: No chest pain on palpation. Heart RRR, no obvious murmurs PULM: No noted coughing/dyspnea. Lungs CTA B/L GI: Abdomen soft, nondistended, no pain on palpation. 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 SKIN/MSK/EXT: No wounds/rashes/edema/amputations, no pain on palpation. Pedal pulses present B/L Discharge Plan Plan Patient Disposition: HOME (Self Care) Patient condition on transfer: Stable Care Plan Goals: ? We have started you on a cholesterol medication atorvastatin. Please take 1 tablet at nighttime. ? We have decreased your dose of blood pressure medication lisinopril. Please take 1 tablet once a day. ? Continue taking the rest of your home medications as before. ? Please follow-up with your primary care doctor within 1 week of discharge. ? Please follow-up with cardiology clinic within 1-2 weeks of discharge for further investigation of your chest pain. ? If you experience any new, worsening or persistent symptoms either call your primary doctor, dial 911 or present to the emergency department. Le hemos iniciado un medicamento para el colesterol, atorvastatina. [place] 1 comprimido por la noche. ? Hemos disminuido phelan dosis del medicamento para la presi?n arterial lisinopril. [place] 1 tableta deonna vez al d?a. ? Contin?e tomando el vandana de isiah medicamentos caseros nancy hasta ahora. ? Realice un seguimiento con phelan m?dico de atenci?n primaria dentro de la semana posterior al doris. ? Realice un seguimiento con la cl?kacy de cardiolog?a dentro de 1 a 2 semanas despu?s del doris para realizar deonna investigaci?n m?s detallada de phelan dolor en el pecho. ? Si experimenta alg?n s?ntoma nuevo, que empeora o persistente, llame a phelan m?dico de atenci?n primaria, keenan el 911 o pres?ntese en el departamento de emergencias. Prescriptions/Referrals Prescriptions/Med Rec: New lisinopril 20 mg Tablet 20 mg PO QDAY 30 Days Qty: 30 0RF atorvastatin 40 mg tablet 40 mg PO HS 30 Days Qty: 30 0RF Continued metformin 1,000 mg Tablet Extended Release 24hr 500 mg PO BID insulin glargine [Basaglar KwikPen U-100 Insulin] 100 unit/mL (3 mL) Insulin Pen 36 unit SUBCUT QPM dapagliflozin propanediol [Farxiga] 5 mg Tablet 5 mg PO QDAY Discontinued lisinopril 40 MG tablet 20 ml PO QDAY Qty: 0 Referrals: Joana Jules FNP [Primary Care Provider] - Patient/Caregiver Discharge Instructions Education Materials: Recognizing a Heart Attack or Angina Print Language: [place] Stand Alone Forms: Kim Award Info., Patient Portal Info Letter Discharge Order Discharge Orders: Discharge (Routine); Ordered 04/01/24 Ordered By: Tomi Restrepo Quality Discharge Quality Measures VTE prophylaxis
[2024-04-01] MEDS: INFLUENZA VIRUS QUADRIVALENT 0.5 ML SYRINGE IMi (16:04)
== END 2024-04-01 16:13 | disposition home or self-care (01) ==
LOC: SERX 19:46 → S3SX 04-01 01:40 → SERHOLD 04-03 10:47
PROVIDERS: Physician Assistant; Admitting Provider Student in an Organized Health Care Education/Training Program; Emergency Provider Emergency Medicine; PCP Nurse Practitioner Family; Visit Provider Student in an Organized Health Care Education/Training Program
DX: R07.9 Chest pain, unspecified (principal); I10 Essential (primary) hypertension; E11.9 Type 2 diabetes mellitus without complications; Z79.4 Long term (current) use of insulin; M19.90 Unspecified osteoarthritis, unspecified site; E78.00 Pure hypercholesterolemia, unspecified
CPT/HCPCS: 36415; 71045; 80053; 80061; 83036; 83690; 83735; 83880; 84100; 84439; 84443; 84484; 85025; 85610; 85730; 90686; 93005; 93225; 96365; 96366; 99285; G0378; J1643; J1644; A9270; J9060

== ENCOUNTER → 2024-07-18 | Outpatient (CLI) | payer BC, MEDICAID, SELFPAY ==
--- NOTE | 2024-07-18 14:04 | XR_ITS ---
Examination: Lumbar spine, 5 views Technique: Lumbar spine AP, lateral, coned lateral lower lumbar spine, bilateral obliques 5 views Exam date and time: July 18, 2024 1438 hours INDICATIONS: Low back pain radiating down the left leg beginning 5 months ago FINDINGS: Moderate osteopenia No lumbar fracture No spondylolisthesis Mild diffuse lumbar disc narrowing IMPRESSION: Mild diffuse lumbar disc narrowing As clinically warranted, consider MRI lumbar spine without contrast follow-up to best assess for disc protrusion producing radicular left leg symptoms
== END | disposition home or self-care (01) ==
DX: M48.061 Spinal stenosis, lumbar region without neurogenic claudication (principal)
CPT/HCPCS: 72110

== ENCOUNTER → 2024-08-04 | Outpatient (CLI) | payer MEDICAID, SELFPAY ==
--- NOTE | 2024-08-04 11:30 | XR_ITS ---
Examination: Screening digital mammography, bilateral Computer aided detection 3-D breast Tomosynthesis, bilateral Date and time of exam: August 04, 2024 1107 hours Compared to mammograms dating to November 20, 2020 Indication: Screening Technique: Nonmagnified MLO, CC views of the breasts to been obtained, reconstructed from 3-D Tomosynthesis images. R2 computer aided detection program utilized for evaluation of suspicious masses and/or abnormal calcifications. 3-D Tomosynthesis images obtained. Findings: The breasts are heterogeneously dense, which may obscure small masses Stable focal asymmetry outer left breast CC view Impression: BI-RADS Category 0: Incomplete: Need additional imaging evaluation Recommend repeat left breast sonography to confirm stability of 24 mm mass 3:00 position left breast noted on the left breast sonogram June 20, 2021
== END | disposition home or self-care (01) ==
DX: Z12.31 Encounter for screening mammogram for malignant neoplasm of breast (principal); N63.25 Unspecified lump in the left breast, overlapping quadrants; N63.15 Unspecified lump in the right breast, overlapping quadrants
CPT/HCPCS: 77063; 77067

== ENCOUNTER → 2024-09-05 | Outpatient (CLI) | payer MEDICAID, SELFPAY ==
--- NOTE | 2024-09-05 10:00 | XR_ITS ---
Examination: MRI lumbar spine without contrast Date and time of exam: 02/05/2025 1016 hours INDICATIONS: Patient fell 5 months ago with injury of the lower back, lower back pain radiating down both legs TECHNIQUE: Multiple MRI axial sagittal images lumbar spine FINDINGS: Minimal anterolisthesis 1 to 2 mm L4 on L5 No lumbar fracture Normal marrow signal lumbar vertebral bodies Diffuse lumbar disc desiccation L5-S1 6 mm central left paracentral subarticular disc bulge displacing the left S1 nerve root L4-L5 2 mm central lumbar disc bulge More cephalad levels unremarkable Impression: L5-S1 6 mm central left paracentral subarticular disc bulge displacing the left S1 nerve root L4-L5 2 mm central lumbar disc bulge
== END | disposition home or self-care (01) ==
DX: M51.360 Other intervertebral disc degeneration, lumbar region with discogenic back pain only (principal); M51.370 Other intervertebral disc degeneration, lumbosacral region with discogenic back pain only
CPT/HCPCS: 72148

== ENCOUNTER → 2024-10-18 | Outpatient (CLI) | payer MEDICAID, SELFPAY ==
--- NOTE | 2024-10-18 15:30 | XR_ITS ---
Examination: Breast ultrasound, unilateral, left complete Date and time of exam: October 18, 2024 1537 hours INDICATIONS: Focal asymmetry outer left breast CC view on mammogram August 04, 2024 Technique: Real-time riley scale ultrasonographic imaging performed left breast including all 4 quadrants as well as nipple retroareolar and axillary region. Findings: No cystic or solid mass IMPRESSION: BI-RADS Category 1: Negative study
== END | disposition home or self-care (01) ==
DX: N63.20 Unspecified lump in the left breast, unspecified quadrant (principal)
CPT/HCPCS: 76641